=== PATIENT | female | born 1955 | race Hispanic/Latino ===

== ENCOUNTER → 2019-07-03 | Day surgery (SDC) | payer MEDICARE, OTHER ==
[2019-06-25 15:21] LABS: BASOPHILS % 0.5 % (0.0-1.0); EOSINOPHILS # (AUTO) 0.1 (0.0-0.4); EOSINOPHILS % 0.9 % (0.0-6.0); HEMATOCRIT 35.5 % (34.2-44.1); HEMOGLOBIN 11.4 g/dL (12.0-16.0); LYMPHOCYTES # (AUTO) 2.3 (1.0-3.2); LYMPHOCYTES % 27.8 % (18.0-39.1); MEAN CORPUSCULAR HEMOGLOBIN 28.6 pg (28-32); MEAN CORPUSCULAR HGB CONC 32.1 g/dL (31-35); MONOCYTES # (AUTO) 0.6 (0.2-0.8); NEUTROPHILS # (AUTO) 5.2 (2.1-6.9); NEUTROPHILS % 63.4 % (38.7-80.0); PLATELET COUNT 278 x10e3/uL (140-360); RED BLOOD COUNT 3.99 x10e6/uL (3.6-5.1); RED CELL DISTRIBUTION WIDTH 13.3 % (11.7-14.4)
[~2019-07-03] MED LIST: ABILIFY5 MG PO; ALENDRONATE SOD70 MG PO; ATORVASTATIN CA20 MG PO; DIOVAN80 MG PO; FENTANYL CITRATE/PF 100MCG/2 ML INJ ONE; GABAPENTIN300 MG PO; HUMULIN 70100 UNIT/1 SQ; HYDROXYZINE HCL25 MG PO; METFORMIN HCL500 MG PO; MIDAZOLAM HCL 2 MG/2 ML VIAL ONE; NAPROXEN250 MG PO; OMEPRAZOLE40 MG PO; PREOP PHACO EYE KIT ONE; VENLAFAXINE HCL75 MG PO
--- OUTSIDE RECORDS SUMMARY | 2019-07-03 12:55 | XMS REPORT ---
Author [facility] Address Unknown Phone Unavailable Care Team Providers Care Chromosomal Disorders Counselor Name Role Phone Unavailable Unavailable Payers Payer Name Policy Type Policy Number Effective Date Expiration Date Problems This patient has no known problems. Allergies, Adverse Reactions, Alerts Allergy Name Allergy Type Status Severity Reaction(s) Onset Date Inactive Date Treating Clinician Comments enalapril DA Active U 2019-02-22 00:00:00 enalapril DA Active U 2013-05-01 00:00:00 Medications This patient has no known medications. Encounters Start Date/Time End Date/Time Encounter Type Admission Type Attending [facility] Care Facility Care Department Encounter ID 2019-08-07 00:00:00 2019-08-07 00:00:00 Outpatient [facility] [id number] 2019-07-27 00:00:00 2019-07-27 00:00:00 Outpatient [facility] [id number] 2019-07-12 00:00:00 2019-07-12 00:00:00 Outpatient [facility] [id number] 2019-07-03 00:00:00 2019-07-03 00:00:00 Outpatient [facility] [id number] 2019-06-29 00:00:00 2019-06-29 00:00:00 Outpatient [facility] [id number] 2019-06-19 14:21:40 2019-06-19 14:21:40 Outpatient [facility] [id number] 2019-06-14 11:02:47 2019-06-14 11:02:47 Outpatient [facility] [id number] 2019-06-06 08:18:34 2019-06-06 08:18:34 Outpatient [facility] [id number] 2019-06-05 16:19:52 2019-06-05 16:19:52 Outpatient [facility] [id number] 2019-06-01 11:29:27 2019-06-01 11:29:27 Outpatient [facility] [id number] 2019-06-01 09:34:11 2019-06-01 09:34:11 Outpatient [facility] [id number] 2019-06-01 00:00:00 2019-06-01 00:00:00 Outpatient [facility] [id number] 2019-05-24 00:00:00 2019-05-24 00:00:00 Outpatient [facility] [id number] 2019-05-04 00:00:00 2019-05-04 00:00:00 Outpatient [facility] [id number] 2019-05-02 00:00:00 2019-05-02 00:00:00 Outpatient [facility] [id number] 2019-04-24 13:02:18 2019-04-24 13:02:18 Outpatient [facility] [id number] 2019-03-29 10:11:44 2019-03-29 10:11:44 Outpatient [facility] [id number] 2019-03-13 13:14:12 2019-03-13 13:14:12 Outpatient [facility] [id number] 2019-03-08 00:00:00 2019-03-08 00:00:00 Outpatient [facility] [id number] 2019-03-05 08:54:37 2019-03-05 08:54:37 Outpatient [facility] [id number] 2019-03-01 14:14:20 2019-03-01 14:14:20 Outpatient [facility] [id number] 2019-03-01 00:00:00 2019-03-01 00:00:00 Outpatient [facility] [id number] 2019-02-27 10:20:45 2019-02-27 10:20:45 Outpatient [facility] [id number] 2019-02-27 08:52:16 2019-02-27 08:52:16 Outpatient [facility] [id number] 2019-02-15 11:29:11 2019-02-15 11:29:11 Outpatient [facility] [id number] 2019-02-13 00:00:00 2019-02-13 00:00:00 Outpatient [facility] [id number] 2019-02-08 10:40:08 2019-02-08 10:40:08 Outpatient [facility] [id number] 2019-02-08 09:45:26 2019-02-08 09:45:26 Outpatient [facility] [id number] 2019-02-06 12:43:34 2019-02-06 12:43:34 Outpatient [facility] [id number] 2019-02-05 00:00:00 2019-02-05 00:00:00 Outpatient [facility] [id number] 2019-01-30 00:00:00 2019-01-30 00:00:00 Outpatient [facility] [id number] 2019-01-30 00:00:00 2019-01-30 00:00:00 Outpatient [facility] [id number] 2019-01-29 00:00:00 2019-01-29 00:00:00 Outpatient [facility] [id number] 2019-01-11 00:00:00 2019-01-11 00:00:00 Outpatient [facility] [id number] 2019-01-05 00:00:00 2019-01-05 00:00:00 Outpatient [facility] [id number] 2019-01-01 00:00:00 2019-01-01 00:00:00 Outpatient [facility] [id number] 2018-12-08 00:00:00 2018-12-08 00:00:00 Outpatient [facility] [id number] 2018-11-23 08:45:13 2018-11-23 08:45:13 Outpatient [facility] [id number] 2018-11-16 00:00:00 2018-11-16 00:00:00 Outpatient [facility] [id number] 2018-11-09 00:00:00 2018-11-09 00:00:00 Outpatient [facility] [id number] 2018-11-06 13:28:03 2018-11-06 13:28:03 Outpatient [facility] [id number] 2018-10-17 14:46:47 2018-10-17 14:46:47 Outpatient [facility] [id number] 2018-10-13 12:58:11 2018-10-13 12:58:11 Outpatient [facility] [id number] 2018-09-29 13:48:05 2018-09-29 13:48:05 Outpatient [facility] [id number] 2018-09-25 12:15:55 2018-09-25 12:15:55 Outpatient [facility] [id number] 2018-09-11 00:00:00 2018-09-11 00:00:00 Outpatient [facility] [id number] 2018-09-07 14:24:42 2018-09-07 14:24:42 Outpatient [facility] [id number] 2018-08-31 00:00:00 2018-08-31 00:00:00 Outpatient [facility] [id number] 2018-08-30 00:00:00 2018-08-30 00:00:00 Outpatient [facility] [id number] 2018-08-23 07:55:29 2018-08-23 07:55:29 Outpatient [facility] [id number] 2018-08-18 00:00:00 2018-08-18 00:00:00 Outpatient [facility] [id number] 2018-08-18 00:00:00 2018-08-18 00:00:00 Outpatient [facility] [id number] 2018-07-25 14:50:49 2018-07-25 14:50:49 Outpatient [facility] [id number] 2018-07-21 00:00:00 2018-07-21 00:00:00 [facility] [id number] 2018-07-21 00:00:00 2018-07-21 00:00:00 Outpatient [facility] [id number] 2018-07-17 10:18:56 2018-07-17 10:18:56 Outpatient [facility] [id number] 2018-07-17 00:00:00 2018-07-17 00:00:00 Outpatient [facility] [id number] 2018-07-17 00:00:00 2018-07-17 00:00:00 Outpatient [facility] [id number] 2018-07-17 00:00:00 2018-07-17 00:00:00 Outpatient [facility] [id number] 2018-07-14 00:00:00 2018-07-14 00:00:00 Outpatient [facility] [id number] 2018-07-14 00:00:00 2018-07-14 00:00:00 Outpatient [facility] [id number] 2018-07-10 00:00:00 2018-07-10 00:00:00 Outpatient [facility] [id number] 2018-06-26 00:00:00 2018-06-26 00:00:00 Outpatient [facility] [id number] 2018-06-20 00:00:00 2018-06-20 00:00:00 Outpatient [facility] [id number] 2018-06-14 00:00:00 2018-06-14 00:00:00 Outpatient [facility] [id number] 2018-06-08 10:20:24 2018-06-08 10:20:24 Outpatient [facility] [id number] 2018-06-07 00:00:00 2018-06-07 00:00:00 Outpatient [facility] [id number] 2018-06-01 00:00:00 2018-06-01 00:00:00 Outpatient [facility] [id number] 2018-05-31 08:41:06 2018-05-31 08:41:06 Outpatient [facility] [id number] 2018-05-31 00:00:00 2018-05-31 00:00:00 Outpatient [facility] [id number] 2018-05-28 00:00:00 2018-05-28 00:00:00 Outpatient [facility] [id number] 2018-05-26 18:47:01 2018-05-26 18:47:01 Outpatient [facility] [id number] 2018-05-09 10:38:57 2018-05-09 10:38:57 Outpatient [facility] [id number] 2018-05-09 00:00:00 2018-05-09 00:00:00 Outpatient [facility] [id number] 2018-05-08 00:00:00 2018-05-08 00:00:00 Outpatient [facility] [id number] 2018-05-04 08:11:42 2018-05-04 08:11:42 Outpatient [facility] [id number] 2018-04-20 09:02:06 2018-04-20 09:02:06 Outpatient [facility] [id number] 2018-04-13 14:58:48 2018-04-13 14:58:48 Outpatient [facility] [id number] 2018-04-11 09:22:28 2018-04-11 09:22:28 Outpatient [facility] [id number] 2018-04-11 08:19:10 2018-04-11 08:19:10 Outpatient [facility] [id number] 2018-04-10 00:00:00 2018-04-10 00:00:00 Outpatient [facility] [id number] 2018-03-29 12:19:45 2018-03-29 12:19:45 Outpatient [facility] [id number] 2018-03-22 10:09:50 2018-03-22 10:09:50 Outpatient [facility] [id number] 2018-03-16 15:04:56 2018-03-16 15:04:56 Outpatient [facility] [id number] 2018-03-13 00:00:00 2018-03-13 00:00:00 Outpatient [facility] [id number] 2018-03-08 00:00:00 2018-03-08 00:00:00 Outpatient [facility] [id number] 2018-03-01 13:54:14 2018-03-01 13:54:14 Outpatient [facility] [id number] 2018-02-28 14:13:47 2018-02-28 14:13:47 Outpatient [facility] [id number] 2018-02-28 13:06:10 2018-02-28 13:06:10 Outpatient [facility] [id number] 2018-02-21 13:37:23 2018-02-21 13:37:23 Outpatient [facility] [id number] 2018-02-21 13:26:46 2018-02-21 13:26:46 Outpatient [facility] [id number] 2018-02-16 00:00:00 2018-02-16 00:00:00 Outpatient [facility] [id number] 2018-02-16 00:00:00 2018-02-16 00:00:00 Outpatient [facility] [id number] 2018-02-14 13:18:32 2018-02-14 13:18:32 Outpatient [facility] [id number] 2018-01-19 00:00:00 2018-01-19 00:00:00 Outpatient [facility] [id number] 2018-01-02 00:00:00 2018-01-02 00:00:00 Outpatient [facility] [id number] 2017-12-30 00:00:00 2017-12-30 00:00:00 Outpatient [facility] [id number] 2017-12-14 00:00:00 2017-12-14 00:00:00 Outpatient [facility] [id number] 2017-11-28 00:00:00 2017-11-28 00:00:00 Outpatient [facility] [id number] 2017-11-18 00:00:00 2017-11-18 00:00:00 Outpatient [facility] [id number] 2017-11-09 00:00:00 2017-11-09 00:00:00 Outpatient [facility] [id number] 2017-11-07 00:00:00 2017-11-07 00:00:00 Outpatient [facility] [id number] 2017-10-06 11:22:15 2017-10-06 11:22:15 Outpatient [facility] [id number] 2017-10-05 00:00:00 2017-10-05 00:00:00 Outpatient [facility] [id number] 2017-10-04 14:48:15 2017-10-04 14:48:15 Outpatient [facility] [id number] 2017-10-04 14:35:24 2017-10-04 14:35:24 Outpatient [facility] [id number] 2017-10-04 13:17:13 2017-10-04 13:17:13 Outpatient [facility] [id number] 2017-10-03 13:42:15 2017-10-03 13:42:15 Outpatient [facility] [id number] 2017-09-28 09:55:09 2017-09-28 09:55:09 Outpatient [facility] [id number] 2017-09-21 00:00:00 2017-09-21 00:00:00 Outpatient [facility] [id number] 2017-09-09 10:32:54 2017-09-09 10:32:54 Outpatient [facility] [id number] 2017-09-09 00:00:00 2017-09-09 00:00:00 Outpatient [facility] [id number] 2017-08-19 00:00:00 2017-08-19 00:00:00 Outpatient [facility] [id number] 2017-08-10 10:42:32 2017-08-10 10:42:32 Outpatient [facility] [id number] 2017-08-09 00:00:00 2017-08-09 00:00:00 Outpatient [facility] [id number] 2017-08-04 14:29:31 2017-08-04 14:29:31 Outpatient [facility] [id number] 2017-07-29 09:52:52 2017-07-29 09:52:52 Outpatient [facility] [id number] 2017-07-20 10:41:34 2017-07-20 10:41:34 Outpatient [facility] [id number] 2017-07-12 10:19:45 2017-07-12 10:19:45 Outpatient [facility] [id number] 2017-07-07 00:00:00 2017-07-07 00:00:00 Outpatient [facility] [id number] 2017-07-06 15:37:49 2017-07-06 15:37:49 Outpatient [facility] [id number] 2017-06-28 00:00:00 2017-06-28 00:00:00 Outpatient [facility] [id number] 2017-06-15 13:56:37 2017-06-15 13:56:37 Outpatient [facility] [id number] 2017-06-13 07:16:20 2017-06-13 07:16:20 Outpatient [facility] [id number] 2017-05-10 10:46:34 2017-05-10 10:46:34 Outpatient [facility] [id number] 2008-05-28 00:00:00 2008-05-28 00:00:00 Outpatient [facility] [id number] Results Test Description Test Time Test Comments Text Results Atomic Results Result Comments URINALYSIS COMPLETE 2019-02-22 18:51:00 UA COLOR (test code=COLU) YELLOW YELLOW UA APPEARANCE (test code=APPU) Cloudy CLEAR UA GLUCOSE DIPSTICK (test code=DGLUU) >1000 (4+) mg/dL NEGATIVE UA BILIRUBIN DIPSTICK (test code=BILU) NEGATIVE mg/dL NEGATIVE UA KETONE DIPSTICK (test code=KETU) TRACE mg/dL NEGATIVE UA SPECIFIC GRAVITY (test code=SGU) 1.008 1.001-1.035 UA BLOOD DIPSTICK (test code=GAURANG) 0.06 mg/dL (1+) mg/dL NEGATIVE UA PH DIPSTICK (test code=RIGO) 7.0 5.0-8.0 UA PROTEIN DIPSTICK (test code=PROU) 50 (1+) mg/dL NEGATIVE UA UROBILINIOGEN DIPSTICK (test code=URO) 8.0 (3+) mg/dL NEGATIVE UA NITRITE DIPSTICK (test code=DANY) NEGATIVE NEGATIVE UA LEUKOCYTE ESTERASE W REFLEX (test code=LEUUR) 500 Nahid/uL (2+) Nahid/uL NEGATIVE UA WBC (test code=WBCU) 151-200 per HPF 0-5 UA RBC (test code=RBCU) 3-5 #/HPF 0-5 UA WBC CLUMPS (test code=WBCUCL) >10 /HPF NONE UA EPITHELIAL CELLS (test code=EPIU) FEW per HPF FEW UA BACTERIA (test code=BACU) MODERATE #/HPF NONE UA MUCUS (test code=MUCU) FEW #/LPF FEW Urine Source? Clean CatchCBC W/O [id number] 17:46:00* Test Item Value Reference Range Comments WHITE BLOOD CELL (test code=WBC) 7.6 K/mm3 4.5-12.5 RED BLOOD CELL (test code=RBC) 4.30 mill/mm3 3.7-5.2 HEMOGLOBIN (test code=HGB) 11.8 gram/dL 11.5-15.5 HEMATOCRIT (test code=HCT) 37.6 % 36.0-46.0 MEAN CELL VOLUME (test code=MCV) 87.4 fL 80-98 MEAN CELL HGB (test code=MCH) 27.4 picogram 27.0-33.0 MEAN CELL HGB CONCETRATION (test code=MCHC) 31.4 gram/dL 33.0-36.0 RED CELL DISTRIBUTION WIDTH (test code=RDW) 13.2 % 11.6-16.2 PLATELET COUNT (test code=PLT) 244 K/mm3 150-450 MEAN PLATELET VOLUME (test code=MPV) 10.1 fL 6.7-11.0 CBC W/O [id number] 17:42:00* Test Item Value Reference Range Comments WHITE BLOOD CELL (test code=WBC) K/mm3 4.5-12.5 RED BLOOD CELL (test code=RBC) mill/mm3 3.7-5.2 HEMOGLOBIN (test code=HGB) 11.8 gram/dL 11.5-15.5 HEMATOCRIT (test code=HCT) 37.6 % 36.0-46.0 MEAN CELL VOLUME (test code=MCV) fL 80-98 MEAN CELL HGB (test code=MCH) picogram 27.0-33.0 MEAN CELL HGB CONCETRATION (test code=MCHC) gram/dL 33.0-36.0 RED CELL DISTRIBUTION WIDTH (test code=RDW) % 11.6-16.2 PLATELET COUNT (test code=PLT) K/mm3 150-450 MEAN PLATELET VOLUME (test code=MPV) fL 6.7-11.0 BASIC METABOLIC [id number] 17:29:00* Test Item Value Reference Range Comments SODIUM (test code=NA) 132 mmol/L 136-145 POTASSIUM (test code=K) 4.4 mmol/L 3.5-5.1 CHLORIDE (test code=CL) 97.0 mmol/L 98-107 CARBON DIOXIDE (test code=CO2) 26.0 mmol/L 21-32 ANION GAP (test code=GAP) 13.4 10-20 GLUCOSE (test code=GLU) 256 mg/dL 74-106 BLOOD UREA NITROGEN (test code=BUN) 8 mg/dL 7-18 GLOMERULAR FILTRATION RATE (test code=GFR) 55 mL/min >=60 Estimated GFR by using Modified MDRD formula.Chronic kidney disease is defined as either kidney damageor GFR <60 mL/min/1.73 m2 for >3 months. CREATININE (test code=CREAT) 1.00 mg/dL 0.55-1.02 Note change in reference range due to change in reagent. BUN/CREATININE RATIO (test code=BUN/CREA) 8.0 10-20 CALCIUM (test code=CA) 8.9 mg/dL 8.5-10.1 HEPATIC FUNCTION [id number] 17:29:00* Test Item Value Reference Range Comments TOTAL PROTEIN (test code=PROT) 8.6 gram/dL 6.4-8.2 ALBUMIN (test code=ALB) 3.1 g/dL 3.4-5.0 GLOBULIN (test code=GLOB) 5.5 gram/dL 2.7-4.2 ALBUMIN/GLOBULIN RATIO (test code=A/G) 0.6 0.75-1.50 BILIRUBIN TOTAL (test code=BILT) 0.90 mg/dL 0.0-1.0 BILIRUBIN DIRECT (test code=BILD) 0.22 mg/dL 0.0-0.20 SGOT/AST (test code=AST) 29 IUnit/L 15-37 SGPT/ALT (test code=ALT) 22 IUnit/L 12-78 ALKALINE PHOSPHATASE TOTAL (test code=ALKP) 107 IUnit/L 45-117 Note change in reference range due to change in reagent. [id number] 17:29:00* Test Item Value Reference Range Comments LIPASE (test code=LIP) 118 U/L 73.0-393.0
[2019-07-03 16:50] VITALS: BP 129/69
== END | disposition home or self-care (01) ==
LOC: OR 12:51 → EDBD 19:30
PROVIDERS: ATTEND Ophthalmology
DX: H25.12 Age-related nuclear cataract, left eye (principal); E11.9 Type 2 diabetes mellitus without complications; I10 Essential (primary) hypertension; M81.0 Age-related osteoporosis without current pathological fracture; E78.5 Hyperlipidemia, unspecified; F32.9 Major depressive disorder, single episode, unspecified; Z88.8 Allergy status to other drugs, medicaments and biological substances; Z01.812 Encounter for preprocedural laboratory examination; Z79.4 Long term (current) use of insulin; Z79.84 Long term (current) use of oral hypoglycemic drugs
CPT/HCPCS: 36415 ×2; 66984; 82948; 85025; J2250; J3010; V2632

== ENCOUNTER → 2019-07-17 | Day surgery (SDC) | payer MEDICARE ==
[~2019-07-17] MED LIST changes: +OR PHACO EYE KIT ONE; +PHENYLEPHRINE HCL 10% 5 ML OPTH SOLN ONE; +TOBRAMYCIN 0.3% OPTH OINT 3.5 GM TUBE ONE
[2019-07-17 15:10] VITALS: BP 107/58
== END | disposition home or self-care (01) ==
LOC: OR 10:40
PROVIDERS: ATTEND Ophthalmology
DX: H25.11 Age-related nuclear cataract, right eye (principal); E11.9 Type 2 diabetes mellitus without complications; I10 Essential (primary) hypertension; M81.0 Age-related osteoporosis without current pathological fracture; E78.5 Hyperlipidemia, unspecified; F32.9 Major depressive disorder, single episode, unspecified; F41.9 Anxiety disorder, unspecified; Z88.8 Allergy status to other drugs, medicaments and biological substances; Z79.4 Long term (current) use of insulin; Z79.84 Long term (current) use of oral hypoglycemic drugs
CPT/HCPCS: 36415; 66984; 82948; J2250; J3010; V2632

== ENCOUNTER → 2024-06-06 | Outpatient (REF) | payer MEDICARE ==
[~2024-06-06] MED LIST changes: -FENTANYL CITRATE/PF 100MCG/2 ML INJ ONE; -MIDAZOLAM HCL 2 MG/2 ML VIAL ONE; -OR PHACO EYE KIT ONE; -PHENYLEPHRINE HCL 10% 5 ML OPTH SOLN ONE; -PREOP PHACO EYE KIT ONE; -TOBRAMYCIN 0.3% OPTH OINT 3.5 GM TUBE ONE
== END ==
LOC: MAMMO 10:24
PROVIDERS: ATTEND Internal Medicine
DX: Z12.31 Encounter for screening mammogram for malignant neoplasm of breast (principal); J20.9 Acute bronchitis, unspecified; R91.8 Other nonspecific abnormal finding of lung field
CPT/HCPCS: 71046; 77067

== ENCOUNTER → 2025-07-08 | Outpatient (REF) | payer MEDICARE | LOC: MAMMO 10:54 | PROVIDERS: ATTEND Internal Medicine | DX: Z12.31 Encounter for screening mammogram for malignant neoplasm of breast (principal) | CPT/HCPCS: 77067 ==